=== PATIENT | male | born 1965 | race Caucasian/White ===

== ENCOUNTER → 2017-06-24 | Outpatient (CLI) | payer OTHER ==
[~2017-06-24] MED LIST: CARTRIDGE STAM1 EACH; FLOMAX0.4 MG PO; PANTOPRAZOLE SO40 M1 PO; PERCOCET 7.5-31 EACH PO; REGLAN 10 MG TA10 MG PO; STENDRA PO; ZANTAC 150MG T150 MG PO
[2017-06-24 11:14] LABS: ANION GAP 6 mmol/L (7-16); BUN 21 mg/dL (7-18); CALCIUM 8.6 mg/dL (8.5-10.1); CHLORIDE 102 mmol/L (98-107); CHOLESTEROL 171 mg/dL (<200); CO2 28 mmol/L (21-32); CREATININE 1.2 mg/dL (0.6-1.3); GLUCOSE 199 mg/dL (70-99); HDL CHOLESTEROL 40 mg/dL (>40); LDL CHOLESTEROL 120 mg/dL (<100); POTASSIUM 4.5 mmol/L (3.5-5.1); SODIUM 136 mmol/L (136-145); TC:HDL 4.3 Ratio (Not establshd); TRIGLYCERIDE 58 mg/dL (<150); VLDL 12 mg/dL (<40)
[2017-06-24 11:15] LABS: SERUM ASSESSMENT Clear
[2017-06-25 02:07] LABS: GLYCOHEMOGLOBIN (HGB A1C) 6.9 % (4.8-5.6)
== END ==
LOC: M.LAB 10:14
PROVIDERS: Internal Medicine
DX: E11.9 Type 2 diabetes mellitus without complications (principal); E78.00 Pure hypercholesterolemia, unspecified; N40.1 Benign prostatic hyperplasia with lower urinary tract symptoms; R39.14 Feeling of incomplete bladder emptying; Z79.4 Long term (current) use of insulin

== ENCOUNTER 2017-09-22 09:18 | Inpatient (IN) | payer OTHER ==
[~2017-09-22] VITALS: Ht 188 cm; Wt 117.9 kg
[~2017-09-22 09:18] MED LIST changes: -FLOMAX0.4 MG PO; -PANTOPRAZOLE SO40 M1 PO; -REGLAN 10 MG TA10 MG PO; -ZANTAC 150MG T150 MG PO
[2017-09-22 09:28] VITALS: BP 153/91
[2017-09-22] MEDS ORDERED: ZANTAC 150MG T150 MG PO (09:35)
[2017-09-22] MEDS ORDERED: FLOMAX0.4 MG PO (09:35)
[2017-09-22 09:55] LABS: HEMATOCRIT 42.2 % (42.0-52.0); HEMOGLOBIN 14.4 gm/dL (14.0-18.0); MCH 29.1 pg (26.0-34.0); MCHC 34.1 g/dL (28.0-37.0); MCV 85.3 fL (80.0-100.0); MPV 8.9 fl. (7.2-11.1); NUCLEATED RBCS 0 /100WBC; PLATELET COUNT* 229 thou/uL (150-400); RBC 4.95 mil/uL (4.50-6.00); RDW-CV 14.5 % (10.5-14.5); WBC 9.5 thou/uL (4.0-11.0)
[2017-09-22 10:02] LABS: ANION GAP 18 mmol/L (7-16); BUN 26 mg/dL (7-18); CALCIUM 10.2 mg/dL (8.5-10.1); CHLORIDE 93 mmol/L (98-107); CO2 20 mmol/L (21-32); CREATININE 1.6 mg/dL (0.6-1.3); GLUCOSE 236 mg/dL (70-99); POTASSIUM 4.4 mmol/L (3.5-5.1); SODIUM 131 mmol/L (136-145)
[2017-09-22 10:03] LABS: INR 1.1; PROTIME 11.1 Seconds (9.20-11.50)
[2017-09-22 10:09] LABS: ALBUMIN 4.3 g/dL (3.4-5.0); ALKALINE PHOSPHATASE 101 U/L (46-116); LIPASE 258 U/L (73-393); SGOT 23 U/L (15-37); SGPT 24 U/L (30-65); TOTAL BILIRUBIN 1.7 mg/dL (<0.1-1.0); TOTAL PROTEIN 8.4 g/dL (6.4-8.2); TROPONIN-I LEVEL <0.06 ng/mL (<0.06)
[2017-09-22 10:25] LABS: ABSOLUTE EOSINOPHILS 0.1 thou/uL (0.0-0.7); ABSOLUTE LYMPHOCYTES 0.7 thou/uL (0.8-5.3); ABSOLUTE MONOCYTES 0.3 thou/uL (0.0-1.2); ABSOLUTE NEUTROPHILS 8.5 thou/uL (1.6-8.1); PLATELET ESTIMATE ADEQUATE
[2017-09-22 12:45] LABS: URINE BLOOD TRACE (Negative); URINE CLARITY CLEAR; URINE COLOR YELLOW; URINE GLUCOSE-RANDOM NEGATIVE (Negative); URINE LEUKOCYTES-REFLEX NEGATIVE (Negative); URINE NITRITE-REFLEX NEGATIVE (Negative); URINE PROTEIN NEGATIVE (Negative); URINE UROBILINOGEN 0.2 E.U./dl (0.2-1.0)
[2017-09-22 12:52] LABS: ACETEST (KETONE CONFIRMATORY) Large (Negative); ICTOTEST (BILI CONFIRMATORY) Negative (Negative); URINE BILIRUBIN 1+ (Negative); URINE KETONES 3+ (Negative)
[2017-09-22 13:16] VITALS: BP 138/87
[2017-09-22 13:39] VITALS: BP 144/83
--- NOTE | 2017-09-22 15:30 | EKG ---
[place] [address] ELECTROCARDIOGRAM REPORT Name: TESSA TAYLOR JR Room: [address] IN 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 JEFFERS : 1965 Requested By: Vince Rowan Order Number: [id number] MD: Augustus Davis Measurements Intervals [place] Rate: 119 P: 43 VA: 150 QRS: -33 QRSD: 80 T: 41 QT: 306 QTc: 431 Interpretive Statements Sinus tachycardia Left axis deviation Compared to ECG 06/06/2016 08:46:09 Left-axis deviation now present Sinus rhythm no longer present Electronically Signed On 09-22-2017 15:30:42 CDT by Augustus Davis [email or web address] <ELECTRONICALLY SIGNED> By: Augustus Davis MD, [facility] 09/22/17 1530 1000 1000 Augustus Davis MD, [facility] /EPI
[2017-09-22 16:46] VITALS: BP 129/82
[2017-09-22 20:47] VITALS: BP 151/71
[2017-09-23] VITALS: BP 137/71
[2017-09-23 04:00] VITALS: BP 112/64
[2017-09-23 08:00] VITALS: BP 152/83
[2017-09-23 10:49] VITALS: BP 152/83
[2017-09-23 11:14] VITALS: BP 154/80
[2017-09-23 13:12] VITALS: BP 154/80
[2017-09-23] MEDS ORDERED: PANTOPRAZOLE SO40 M1 PO (14:26)
[2017-09-23] MEDS ORDERED: REGLAN 10 MG TA10 MG PO (14:26)
--- NOTE | 2017-09-25 14:04 | OP ---
[facility] [address] [place] [address] OPERATIVE REPORT Name: TESSA TAYLOR JR Room: [address] IN .R.#: [id number] Admission: 09/22/17 Attend Phys: Bri Geiger Discharge: 09/23/17 Date of : 63 Report #: [id number] THIS REPORT FOR: //name// CC: Sunny Terry MD DATE OF SERVICE: 09/23/2017 PROCEDURE PERFORMED: EGD with biopsy and colonoscopy. INDICATION FOR PROCEDURE: GERD, dyspepsia and dysphagia. The patient also is getting colonoscopy for average risk screening. MEDICATION GIVEN DURING THIS PROCEDURE: Include propofol administered by video game technician. PHYSICAL EXAMINATION: VITAL SIGNS: Reveals normal vitals. ABDOMEN: Soft, nontender, nondistended. Bowel sounds are positive. LUNGS: Clear to auscultation bilaterally. CARDIOVASCULAR: Regular rate. PROCEDURE PERFORMED: Esophagogastroduodenoscopy. DESCRIPTION OF PROCEDURE: An informed consent was obtained from the patient including the nature, risks, benefits and alternatives described. The patient was placed in the left lateral decubitus position with oximetry, blood pressure and cardiac monitoring. IV sedation was titrated with medication to effect. The [employer] video upper endoscope was then advanced under direct vision into the esophagus, there was grade D distal esophagitis. No evidence for Mayes's mucosa was noted. The stomach was then entered, insufflated and examined in its entirety and revealed a normal-appearing antrum and body as well as the cardia and fundus on retroflex examination. There was a moderate size hiatal hernia. The pylorus was widely patent, revealing a normal duodenal bulb and distal duodenum. The esophagus was not dilated due to the degree of esophagitis. Biopsies were obtained from distal esophagus to rule out dysplasia. Scope and air were then withdrawn, and the patient was sent to the recovery room in stable condition. PROCEDURE PERFORMED: Colonoscopy to terminal ileum. DESCRIPTION OF PROCEDURE: An informed [place] [id number] OPERATIVE REPORT Name: TESSA TAYLOR JR Room: [address]#: [id number] Admission: 09/22/17 Attend Phys: Bri Geiger Discharge: 09/23/17 Date of : 63 Report #: [id number] including the nature, risks, benefits and alternatives described. The patient was placed in the left lateral decubitus position with oximetry, blood pressure and cardiac monitoring. IV sedation was titrated with medication to effect. Anal inspection and digital rectal examination were unremarkable. The ICU Metrix video colonoscope was then advanced under direct vision to the level of the cecum, which was identified by the ileocecal valve and the appendiceal orifice. The cecum, ascending, transverse, descending and sigmoid colon were then circumferentially inspected in a well prepped colon. There were pandiverticulosis extending from ascending to sigmoid colon. The rectum appeared normal on forward and retroflex examination. Prior to pulling the scope, the ileocecal valve was traversed and the terminal ileum was evaluated and found to be normal. There were moderate-sized internal hemorrhoids. The prep quality was poor and multiple washes were performed. Possibility of missing polyps less than 5 mm in the right colon may be likely due to unsatisfactory prep. Scope and air were then withdrawn, and the patient was sent to the recovery room in stable condition. IMPRESSION: 1. Grade D esophagitis. 2. Hiatal hernia. 3. Status post distal esophageal biopsy to rule out dysplasia. 4. Dysphagia, but no dilation was performed due to the degree of inflammation. 5. Pandiverticulosis. 6. Internal hemorrhoids, moderate. 7. Poor prep. RECOMMENDATION: We will place the patient on double dose of PPI and also Reglan 10 mg before meals and at bedtime due to his history of gastroparesis. I believe his reflux symptoms and also the degree of esophagitis is secondary to his gastroparesis. We will repeat his colonoscopy in 3 years due to poor prep. <ELECTRONICALLY SIGNED> By: Dave Lopez MD 09/25/17 1404 1230 [id number] Lopez MD /nt
--- NOTE | 2017-09-26 07:51 | PATH ---
[address] [address] PATHOLOGY RPT PROCEDURE Name: PAVAN TAYLOR JR Room: [address] IN M.R.#: [id number] Admission: 09/22/17 Date of : 63 Discharge: 09/23/17 Report #: [id number] Path Case #: [id number] [facility] Accession Number: [id number] . 01 Material submitted: . ESOPHAGEAL BIOPSY RULE OUT DYSPLASIA . 01 Clinical history: . Rule out dysplasia . 02 Diagnosis: Esophageal biopsy: - Benign esophageal and gastric/columnar types mucosa with mild chronic and active inflammation typical of reflux, negative for goblet cells/diagnostic Mayes's metaplasia, granulomas and dysplasia. (SEBLE/db; 09/25/17) LBQ/09/25/2017 . 02 Electronically signed: . Bill Berry MD, Pathologist NPI- [id number] . 01 Gross description: . Received in formalin labeled "Sidra Morris, Pavan, esophageal biopsy," are 3 segments of combs soft tissue measuring 0.9 x 0.4 x 0.2 cm in aggregate dimensions and ranging from 0.2 to 0.3 cm in maximum dimension. The specimen is submitted entirely in cassette A1. (TSD; 09/23/2017) TOB/TOB . 02 Pathologist provided ICD-10: K20.9 . 02 CPT . 968965 Performed at: [address], [place] [id number] MD Ronald Pro MD Phone: [phone] Performed at: 02 [facility] [address], [place], [place] [id number] MD Bill Brery MD Phone: [phone]
== END 2017-09-23 15:02 | disposition home or self-care (01) | DRG 379 ==
LOC: M.ERS 09:18 → M.TBA-ER 11:08 → M.2W 11:08
PROVIDERS: Family Medicine; ADMIT Internal Medicine
PROC: 0DB58ZX Excision of Esophagus, Via Natural or Artificial Opening Endoscopic, Diagnostic (ICD-10-PCS; principal; 2017-09-23)
PROC: 0DJD8ZZ Inspection of Lower Intestinal Tract, Via Natural or Artificial Opening Endoscopic (ICD-10-PCS; principal; 2017-09-23)
DX: K57.31 Diverticulosis of large intestine without perforation or abscess with bleeding (principal); K21.9 Gastro-esophageal reflux disease without esophagitis; K20.9 Esophagitis, unspecified; K44.9 Diaphragmatic hernia without obstruction or gangrene; K64.8 Other hemorrhoids; Z90.49 Acquired absence of other specified parts of digestive tract; Z87.891 Personal history of nicotine dependence; Z79.4 Long term (current) use of insulin; Z79.899 Other long term (current) drug therapy; Z88.8 Allergy status to other drugs, medicaments and biological substances

== ENCOUNTER → 2017-11-18 | Outpatient (CLI) | payer OTHER ==
[~2017-11-18] MED LIST changes: +FLOMAX0.4 MG PO; +PANTOPRAZOLE SO40 M1 PO; +REGLAN 10 MG TA10 MG PO; +ZANTAC 150MG T150 MG PO
[2017-11-18 11:35] LABS: ABSOLUTE EOSINOPHILS 0.1 thou/uL (0.0-0.7); ABSOLUTE LYMPHOCYTES 0.5 thou/uL (0.8-5.3); ABSOLUTE MONOCYTES 0.4 thou/uL (0.0-1.2); ABSOLUTE NEUTROPHILS 3.6 thou/uL (1.6-8.1); EOSINOPHILS 1.6 %; HEMATOCRIT 37.3 % (42.0-52.0); HEMOGLOBIN 12.8 gm/dL (14.0-18.0); LYMPHOCYTES 11.3 %; MCH 29.3 pg (26.0-34.0); MCHC 34.4 g/dL (28.0-37.0); MONOCYTES 8.3 %; MPV 8.1 fl. (7.2-11.1); NUCLEATED RBCS 0 /100WBC; PLATELET COUNT* 184 thou/uL (150-400); POLYS 77.8 %; RBC 4.39 mil/uL (4.50-6.00); RDW-CV 14.5 % (10.5-14.5); WBC 4.6 thou/uL (4.0-11.0)
[2017-11-18 11:52] LABS: ALBUMIN 3.3 g/dL (3.4-5.0); CALCIUM 8.7 mg/dL (8.5-10.1); CREATININE 1.3 mg/dL (0.6-1.3); POTASSIUM 4.5 mmol/L (3.5-5.1); TOTAL BILIRUBIN 0.5 mg/dL (<0.1-1.0); TOTAL PROTEIN 7.2 g/dL (6.4-8.2)
== END ==
LOC: M.LAB 11:07
DX: C01 Malignant neoplasm of base of tongue (principal); E11.9 Type 2 diabetes mellitus without complications

== ENCOUNTER → 2017-12-10 | Outpatient (CLI) | payer OTHER ==
[2017-12-10 09:54] LABS: ANION GAP 4 mmol/L (7-16); BUN 24 mg/dL (7-18); CALCIUM 8.5 mg/dL (8.5-10.1); CHLORIDE 105 mmol/L (98-107); CHOLESTEROL 166 mg/dL (<200); CO2 27 mmol/L (21-32); CREATININE 1.2 mg/dL (0.6-1.3); GLUCOSE 127 mg/dL (70-99); HDL CHOLESTEROL 41 mg/dL (>40); LDL CHOLESTEROL 114 mg/dL (<100); POTASSIUM 4.1 mmol/L (3.5-5.1); SGOT 14 U/L (15-37); SGPT 20 U/L (30-65); SODIUM 136 mmol/L (136-145); TRIGLYCERIDE 55 mg/dL (<150); VLDL 11 mg/dL (<40)
[2017-12-10 09:59] LABS: SERUM ASSESSMENT Clear
[2017-12-10 21:10] LABS: GLYCOHEMOGLOBIN (HGB A1C) 6.9 % (4.8-5.6)
== END ==
LOC: M.LAB 09:04
PROVIDERS: Internal Medicine
DX: Z11.59 Encounter for screening for other viral diseases (principal); E11.9 Type 2 diabetes mellitus without complications; E78.00 Pure hypercholesterolemia, unspecified; K21.9 Gastro-esophageal reflux disease without esophagitis; K31.84 Gastroparesis; C44.42 Squamous cell carcinoma of skin of scalp and neck; Z92.3 Personal history of irradiation; Z79.4 Long term (current) use of insulin; Z85.810 Personal history of malignant neoplasm of tongue

== ENCOUNTER → 2017-12-17 | Outpatient (CLI) | payer OTHER | LOC: M.CT 09:30 | DX: Z00.01 Encounter for general adult medical examination with abnormal findings (principal); I25.84 Coronary atherosclerosis due to calcified coronary lesion ==

== ENCOUNTER → 2017-12-31 | Outpatient (CLI) | payer OTHER ==
[2017-12-31 12:22] LABS: CREATININE 1.3 mg/dL (0.6-1.3)
== END ==
LOC: M.LAB 11:54 → M.CT 13:00
PROVIDERS: Specialist
DX: C80.1 Malignant (primary) neoplasm, unspecified (principal)

== ENCOUNTER → 2018-02-24 | Outpatient (CLI) | payer OTHER ==
[2018-02-24 10:23] LABS: ABSOLUTE BASOPHILS 0.1 thou/uL (0.0-0.2); ABSOLUTE EOSINOPHILS 0.2 thou/uL (0.0-0.7); ABSOLUTE LYMPHOCYTES 0.6 thou/uL (0.8-5.3); ABSOLUTE MONOCYTES 0.4 thou/uL (0.0-1.2); ABSOLUTE NEUTROPHILS 3.3 thou/uL (1.6-8.1); BASOPHILS 1.6 %; EOSINOPHILS 3.6 %; HEMOGLOBIN 13.6 gm/dL (14.0-18.0); LYMPHOCYTES 13.6 %; MCH 28.7 pg (26.0-34.0); MCV 84.5 fL (80.0-100.0); MONOCYTES 8.2 %; MPV 8.4 fl. (7.2-11.1); NUCLEATED RBCS 0 /100WBC; PLATELET COUNT* 201 thou/uL (150-400); RBC 4.73 mil/uL (4.50-6.00); RDW-CV 14.7 % (10.5-14.5); WBC 4.6 thou/uL (4.0-11.0)
[2018-02-24 10:45] LABS: ALBUMIN 3.5 g/dL (3.4-5.0); CALCIUM 8.5 mg/dL (8.5-10.1); CREATININE 1.3 mg/dL (0.6-1.3); POTASSIUM 4.4 mmol/L (3.5-5.1); TOTAL BILIRUBIN 0.3 mg/dL (<0.1-1.0); TOTAL PROTEIN 7.6 g/dL (6.4-8.2)
--- NOTE | 2018-02-27 12:48 | HEMONC ---
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 SUBJECTIVE: The patient is a 52-year-old male who has been diagnosed with squamous cell carcinoma of tongue base with bilateral neck adenopathy. He underwent biopsy in 05/2016. He has been evaluated by ENT and Dr. Vijay Coley and received definitive concurrent chemoradiation with IMRT 69.96 Gy, finishing on 09/13/2016 along with cisplatin 100 mg per meter square on 3 doses. The patient has been followed clinically by examination and by CT scan. His most recent CT scan in 12/2017 showed that he had a resolution of some irregular lesion at the cervical area, not longer visualized. The patient denies any acute symptoms other than mild fatigue. He denies any lumps or bumps. No nausea, no vomiting, no abdominal pain. He quit chewing tobacco since he has been diagnosed. REVIEW OF SYSTEMS: All systems were reviewed. It was negative except the above. PAST MEDICAL HISTORY: BPH, diabetes mellitus, GERD. MEDICATIONS: Humalog insulin pump, Flomax 0.4 mg, ranitidine 300 mg at bedtime, losartan 1 tab p.o. daily. PAST SURGICAL HISTORY: Cholecystectomy. FAMILY HISTORY: No family history of malignancy. SOCIAL HISTORY: He used to chew tobacco since the age of 15; however, he stopped when he had his diagnosis. No alcohol or drug abuse. ALLERGIES: ASPIRIN CAUSES HIVES. OBJECTIVE: VITAL SIGNS: Today, blood pressure is 155/83, pulse is 84, respirations 20, temperature is 98.3, saturations 97% on room air. GENERAL: The patient was sitting in chair, was not in acute distress. LUNGS: Clear to auscultations bilaterally. HEART: Regular rate and rhythm. S1, S2 [place] [address] HEMATOLOGY ONCOLOGY NOTE Name: TESSA TAYLOR JR Room: [facility]#: [id number] Admission: 02/24/18 Attend Phys: Fitz Kurtz MD Discharge: Date of : 63 Report #: [id number] HEENT: Oral cavity did not show any suspicious lesions. NECK: Did not reveal any palpable lymphadenopathy or skin changes. ASSESSMENT AND PLAN: A 52-year-old male who has been diagnosed with a stage 4A [id number] HPV positive squamous cell carcinoma of the base of the tongue with bilateral lymphadenopathy. The patient received definitive treatment with concurrent chemoradiation cisplatin based. At this point, his most recent CT scan for the last year and a half did not show any evidence of recurrence. PLAN: To obtain a followup CT scan neck and chest within 3 months. We will obtain CBC, CMP, TSH and free T4 today. Follow up in 3 months. <ELECTRONICALLY SIGNED> By: Fitz Kurtz MD 02/27/18 1248 [id number] Kurtz MD /nt
== END ==
LOC: M.RTH 09:30
PROVIDERS: Internal Medicine
DX: C01 Malignant neoplasm of base of tongue (principal); C77.1 Secondary and unspecified malignant neoplasm of intrathoracic lymph nodes; E11.9 Type 2 diabetes mellitus without complications; M10.9 Gout, unspecified; N40.0 Benign prostatic hyperplasia without lower urinary tract symptoms; Z90.49 Acquired absence of other specified parts of digestive tract

== ENCOUNTER → 2018-05-07 | Outpatient (CLI) | payer OTHER ==
[2018-05-07 08:32] LABS: ABSOLUTE BASOPHILS 0.1 thou/uL (0.0-0.2); ABSOLUTE EOSINOPHILS 0.1 thou/uL (0.0-0.7); ABSOLUTE LYMPHOCYTES 0.6 thou/uL (0.8-5.3); ABSOLUTE MONOCYTES 0.4 thou/uL (0.0-1.2); BASOPHILS 1.2 %; EOSINOPHILS 2.4 %; HEMATOCRIT 39.2 % (42.0-52.0); HEMOGLOBIN 13.9 gm/dL (14.0-18.0); LYMPHOCYTES 14.5 %; MCH 29.9 pg (26.0-34.0); MCHC 35.5 g/dL (28.0-37.0); MONOCYTES 9.2 %; MPV 8.3 fl. (7.2-11.1); NUCLEATED RBCS 0 /100WBC; PLATELET COUNT* 217 thou/uL (150-400); POLYS 72.7 %; RBC 4.67 mil/uL (4.50-6.00); RDW-CV 14.5 % (10.5-14.5); WBC 4.1 thou/uL (4.0-11.0)
[2018-05-07 08:58] LABS: ALBUMIN 3.5 g/dL (3.4-5.0); CALCIUM 8.9 mg/dL (8.5-10.1); CREATININE 1.3 mg/dL (0.6-1.3); POTASSIUM 4.2 mmol/L (3.5-5.1); TOTAL BILIRUBIN 0.7 mg/dL (<0.1-1.0); TOTAL PROTEIN 7.3 g/dL (6.4-8.2)
== END ==
LOC: M.LAB 02-24 12:48
PROVIDERS: Internal Medicine
DX: C01 Malignant neoplasm of base of tongue (principal); C77.1 Secondary and unspecified malignant neoplasm of intrathoracic lymph nodes; M47.812 Spondylosis without myelopathy or radiculopathy, cervical region; M48.02 Spinal stenosis, cervical region